=== PATIENT | female | born 1955 | race Caucasian/White ===

== ENCOUNTER 2021-03-03 15:21 | Outpatient (CLI) | payer MEDICARE, OTHER ==
--- NOTE | 2021-03-03 15:52 | XRAY Report ---
PROCEDURE: Ankle 3 View RT INDICATIONS: RIGHT ANKLE PAIN TECHNIQUE: 3 views of the ankle were acquired. COMPARISON: none FINDINGS: Bones: Nondisplaced distal fibular fracture. Avulsion fracture is present at the medial malleolus. Ankle mortise is normally aligned. No suspicious bony lesions. Soft tissues: Lateral malleolar edema is present. Achilles tendon appears normal. IMPRESSION: Nondisplaced distal fibular fracture. Avulusion medial malleolar fracture. Reviewed by: Eneida Campos MD on 03/03/2021 3:50 PM PDT Approved by: Eneida Campos MD on 03/03/2021 3:50 PM PDT Station ID: [id number]
== END 2021-03-03 23:59 | disposition home or self-care (01) ==
LOC: DI.N 15:21
PROVIDERS: ATTEND Nurse Practitioner
DX: S82.831A Other fracture of upper and lower end of right fibula, initial encounter for closed fracture (principal); S82.54XA Nondisplaced fracture of medial malleolus of right tibia, initial encounter for closed fracture; W19.XXXA Unspecified fall, initial encounter